=== PATIENT | female | born 1935 | race Caucasian/White ===

== ENCOUNTER → 2023-07-16 11:57 | Outpatient (REF) | payer MEDICARE, SELFPAY ==
[2023-07-16 17:22] LABS: INR 1.98; PT 22.7 Sec (11.4-14.6)
== END ==
LOC: HWLAB 11:57
PROVIDERS: ATTENDING PHYSICIAN Internal Medicine
DX: I48.0 Paroxysmal atrial fibrillation (principal); Z79.01 Long term (current) use of anticoagulants
CPT/HCPCS: 36415; 85610

== ENCOUNTER → 2023-09-07 11:37 | Outpatient (REF) | payer MEDICARE, SELFPAY ==
[2023-09-07 16:13] LABS: INR 2.36; PT 25.7 Sec (11.4-14.6)
== END ==
LOC: HWLAB 11:37
PROVIDERS: ATTENDING PHYSICIAN Internal Medicine
DX: I48.0 Paroxysmal atrial fibrillation (principal)
CPT/HCPCS: 36415; 85610

== ENCOUNTER → 2023-09-10 11:28 | Outpatient (REF) | payer MEDICARE, SELFPAY | LOC: HWWDC 11:28 | PROVIDERS: ATTENDING PHYSICIAN Internal Medicine | DX: Z12.31 Encounter for screening mammogram for malignant neoplasm of breast (principal) | CPT/HCPCS: 77063; 77067 ==

== ENCOUNTER → 2023-10-05 11:20 | Outpatient (REF) | payer MEDICARE, SELFPAY ==
[2023-10-05 15:07] LABS: INR 3.31; PT 33.6 Sec (11.4-14.6)
== END ==
LOC: HWLAB 11:20
PROVIDERS: ATTENDING PHYSICIAN Internal Medicine
DX: Z79.01 Long term (current) use of anticoagulants (principal)
CPT/HCPCS: 36415; 85610

== ENCOUNTER → 2023-10-14 11:16 | Outpatient (REF) | payer MEDICARE, SELFPAY ==
[2023-10-14 15:35] LABS: INR 2.24
== END ==
LOC: HWLAB 11:16
PROVIDERS: ATTENDING PHYSICIAN Internal Medicine
DX: Z79.01 Long term (current) use of anticoagulants (principal)
CPT/HCPCS: 36415; 85610

== ENCOUNTER 2023-10-17 11:35 | Emergency (ER) | payer MEDICARE, SELFPAY ==
[2023-10-17 11:42] VITALS: BP 189/93
--- NOTE | 2023-10-17 13:15 | ED.GENMED ---
History of Present Illness
General
Chief Complaint: Numbness
Time Seen by Provider: 10/17/23 12:13
Travel History
Have you had any contact with someone who has COVID-19?: No
Do you have any symptoms of coronavirus? Fever > 100 degrees, chills, cough, shortness of breath, sore throat, loss of taste or smell, muscle aches, or headache?: No
History of Present Illness
History of Present Illness:
88-year-old female presents to the emergency department for evaluation of left-sided facial droop as well as left arm and leg tingling that began upon awakening at approximately 6 to 7 AM today. She was admitted to [facility] on October 10 with
the same symptoms, at that time underwent stroke workup including CT of the head, MRI/MRA of the brain and echocardiogram were unremarkable. There is no sign of stroke according to the discharge paperwork. She was noted to have a supratherapeutic
INR as well as abnormal TSH requiring increasing Synthroid. Symptoms have since resolved upon arrival to the emergency department.
Past History
Past History
ED Past Medical History: HTN, Hypothyroidism and Other (Factor V Leiden deficiency, DVT Vertigo, Palpitations)
ED Past Surgical History: Appendectomy, Gynecological (Hysterectomy), Orthopedic (Hand surgery, carpal tunnel surgery) and Other (Leg varicosities procedures, cataract surgery)
Social History
Tobacco: Non-smoker
Alcohol: Occasional
Drug: None
Personal:
Living: with family
Employment: Retired
Family History
Family History: Other (Several women with stroke, several men with MS)
Review of Systems
Review of Systems
Allergies reviewed?: Yes
All Other Systems: ROS reviewed and negative except as documented in HPI and ROS
Phy Exam
Physical Exam
Physical Exam:
GEN: Well appearing, NAD, WDWN
HEENT: Oral mucosa moist, no scleral icterus, no nasal congestion
Cardiac: Regular rate
Lung: No respiratory distress, no tachypnea
MSK: No gross deformity or injuries
Skin: Good color, no pallor or jaundice, no rashes
Neuro: AO x3; CN II-XII grossly intact. BUE strength 5/5 in all mejias, sensation intact and symmetric. Left strength 4 out of 5 with mild drift. Extremity, right leg strength 5 out of 5, normal sensation bilaterally
Psych: Calm, cooperative
Course
Orders/Labs/Results
Orders:
Orders
10/17/23 11:[address] [CT Head W/o Iv Contrast] Urgent
Comment:
Reason For Exam: L leg and face numbness, hx of stroke
10/17/23 13:44
Complete Blood Count/With Diff Urgent
Comprehensive Metabolic Panel Urgent
Prothrombin Time Urgent
Abnormal Lab Results
10/17/23
13:44
RBC 3.85 L 10^6/uL
(4.20-5.40)
Hct 36.6 L %
(37.0-47.0)
MCH 32.2 H pg
(27.0-31.0)
MPV 11.4 H fL
(7.4-10.4)
PT 24.1 H Sec
(11.4-14.6)
10/17/23 13:44
10/17/23 13:44
Vital Signs
Initial and Last Documented VS:
Initial Vital Signs
Temp Pulse Resp BP Pulse Ox
98.2 F 71 18 189/93 100
10/17/23 11:42 10/17/23 11:42 10/17/23 11:42 10/17/23 11:42 10/17/23 11:42
Last Documented Vital Signs
Temp Pulse Resp BP Pulse Ox
98.2 F 86 17 175/93 97
10/17/23 11:42 10/17/23 15:00 10/17/23 15:00 10/17/23 15:00 10/17/23 15:00
MDM/Problems Addressed
MDM/Problems Addressed:
88-year-old female presents with TIA symptoms. Similar symptoms earlier in the week that were evaluated [facility] extensively with MRI, MRA and echocardiogram. She is on maximal medical therapy with anticoagulants and statins. Workup in
the emergency department is unrevealing. I discussed the findings and clinical presentation with neurology on-call who advised that there is no need for change to medical therapy and no indication for readmission for further neuro studies given
recency of extensive workup at [place]. Discussed return parameters and supportive care with the patient
*Critical Care Note
Total Time (30-74mins, 75-104mins- exclusive of procedures): Not Applicable
ED Attending Note
-
Portions of this chart may have been created with voice recognition software.� Occasional wrong word or��sound alike� substitutions may have occurred due to the inherent limitations of voice recognition software.
Discharge Plan
Departure
Patient Disposition: Home (Routine Discharge)
Date of Disposition: 10/17/23
Time of Disposition: 15:10
Patient with high blood pressure during this ER visit?: Yes
Discharge Problem:
TIA (transient ischemic attack)
Instructions: Transient Ischemic Attack ED
Prescriptions:
No Action
verapamil 120 MG tablet
240 mg PO DAILY
atorvastatin 20 MG tablet
20 mg PO DAILY
levothyroxine 100 MCG tablet
100 mcg PO .DAILY EXCEPT THURSDAY
levothyroxine 200 MCG tablet
200 mcg PO .THURSDAY
metoprolol succinate 25 MG tablet extended release 24 hr
25 mg PO DAILY
doxazosin 4 MG tablet
8 mg PO DAILY Qty: 0 0RF
Rx Instructions:
hold systolic blood pressure <130
warfarin [Jantoven] 5 MG tablet
5 mg PO HS Qty: 60 0RF
Rx Instructions:
5 MG TUES, TH, SAT
2.5 MG SUN, MON, WED, THU
Referrals:
Clarence Byrd MD [Family Provider] -
Activity Restrictions/Additional Instructions:
At this time I suspect her symptoms are caused by a TIA
Medical therapy is maximized as you are on a blood thinner and cholesterol medicine
If your symptoms reoccur and last longer than they have thus far, especially with any new neurologic symptoms or headache, return to the ER immediately
Interventions
Interventions:
*Risk Screen - Suicide Last Done: 10/17/23 11:42
*General Assessment Last Done: 10/17/23 11:42
*Neglect/Abuse Screening Last Done: 10/17/23 11:42
Discharge Date and Time
Discharge Date/Time: 10/17/23 15:42
Print Language: GREEK
[2023-10-17 13:55] LABS: % Basophils 0.5 % (0-2); % Eosinophils 0.6 % (0-6); % Immature Granulocytes 0.3 % (0-0.5); % Lymphocytes 23.3 % (20.5-51.1); % Monocytes 7.3 % (1.7-9.3); Absolute Lymphocytes 1.4 10^3/uL (1.2-3.4); Absolute Monocytes 0.5 10^3/uL (0.1-0.6); Absolute Neutrophils 4.2 10^3/uL (1.4-6.5); Hematocrit 36.6 % (37.0-47.0); Hemoglobin 12.4 g/dL (12.0-16.0); Mean Corp Hgb Conc. 33.9 g/dL (33.0-37.0); Mean Corpuscular Hgb 32.2 pg (27.0-31.0); Mean Corpuscular Volume 95.1 fL (81.0-99.0); Mean Platelet Volume 11.4 fL (7.4-10.4); Nucleated Red Blood Cells % 0 %; Platelet Count 208 10^3/uL (130-400); Red Blood Cell Count 3.85 10^6/uL (4.20-5.40); Red Cell Dist. Width 13.9 % (11.5-14.5); White Blood Cell Count 6.2 10^3/uL (4.8-10.8)
[2023-10-17 14:01] LABS: INR 2.18; PT 24.1 Sec (11.4-14.6)
[2023-10-17 14:08] LABS: ALT (SGPT) 16 U/L (0-35); AST (SGOT) 24 U/L (14-36); Albumin 4.2 g/dl (3.5-5.0); Alkaline Phosphatase 67 U/L (38-126); Blood Urea Nitrogen 14 mg/dl (7-17); Calcium 9.8 mg/dl (8.4-10.2); Carbon Dioxide 25 mmol/L (22-30); Chloride 106 mmol/L (98-107); Glucose 84 mg/dl (70-99); Potassium 4.1 mmol/L (3.5-5.1); Sodium 140 mmol/L (135-145); Total Bilirubin 0.7 mg/dl (0.2-1.3); Total Protein 6.9 g/dl (6.3-8.2); eGFR > 60.00
[2023-10-17 15:00] VITALS: BP 175/93
== END 2023-10-17 15:42 | disposition home or self-care (01) ==
LOC: EMR 11:35
PROVIDERS: Physician Assistant; EMERGENCY PHYSICIAN Emergency Medicine; FAMILY PHYSICIAN Internal Medicine; REFERRING PHYSICIAN Nuclear Medicine Nuclear Cardiology
DX: G45.9 Transient cerebral ischemic attack, unspecified (principal); I10 Essential (primary) hypertension
CPT/HCPCS: 99284; 70450; 80053; 85025; 85610

== ENCOUNTER → 2023-11-03 13:43 | Outpatient (REF) | payer MEDICARE, SELFPAY | LOC: HWRCS 13:43 | PROVIDERS: ATTENDING PHYSICIAN Nuclear Medicine Nuclear Cardiology; FAMILY PHYSICIAN Internal Medicine | DX: I35.1 Nonrheumatic aortic (valve) insufficiency (principal); I34.0 Nonrheumatic mitral (valve) insufficiency | CPT/HCPCS: 93306 ==

== ENCOUNTER → 2023-11-11 11:31 | Outpatient (REF) | payer MEDICARE, SELFPAY ==
[2023-11-11 16:30] LABS: INR 1.79; PT 20.9 Sec (11.4-14.6)
== END ==
LOC: HWLAB 11:31
PROVIDERS: ATTENDING PHYSICIAN Internal Medicine
DX: Z79.01 Long term (current) use of anticoagulants (principal)
CPT/HCPCS: 36415; 85610

== ENCOUNTER → 2023-12-09 11:47 | Outpatient (REF) | payer MEDICARE, SELFPAY ==
[2023-12-09 16:14] LABS: PT 28.2 Sec (11.4-14.6)
== END ==
LOC: HWLAB 11:47
PROVIDERS: ATTENDING PHYSICIAN Internal Medicine
DX: Z79.01 Long term (current) use of anticoagulants (principal)
CPT/HCPCS: 36415; 85610

== ENCOUNTER → 2024-01-06 11:56 | Outpatient (REF) | payer MEDICARE, SELFPAY ==
[2024-01-06 16:24] LABS: INR 3.35; PT 34.4 Sec (11.4-14.6)
== END ==
LOC: HWLAB 11:56
PROVIDERS: ATTENDING PHYSICIAN Internal Medicine
DX: Z79.01 Long term (current) use of anticoagulants (principal)
CPT/HCPCS: 36415; 85610

== ENCOUNTER → 2024-01-21 12:08 | Outpatient (REF) | payer MEDICARE, SELFPAY ==
[2024-01-21 16:05] LABS: INR 2.57; PT 27.9 Sec (11.4-14.6)
== END ==
LOC: HWLAB 12:08
PROVIDERS: ATTENDING PHYSICIAN Internal Medicine
DX: Z79.01 Long term (current) use of anticoagulants (principal)
CPT/HCPCS: 36415; 85610

== ENCOUNTER → 2024-07-13 12:24 | Outpatient (REF) | payer MEDICARE, SELFPAY | LOC: HWRCS 12:24 | PROVIDERS: ATTENDING PHYSICIAN Nuclear Medicine Nuclear Cardiology; FAMILY PHYSICIAN Internal Medicine | DX: I48.0 Paroxysmal atrial fibrillation (principal); I35.1 Nonrheumatic aortic (valve) insufficiency; I34.0 Nonrheumatic mitral (valve) insufficiency; I35.0 Nonrheumatic aortic (valve) stenosis | CPT/HCPCS: 93306 ==

== ENCOUNTER → 2024-09-13 11:23 | Outpatient (REF) | payer MEDICARE, SELFPAY | LOC: HWWDC 11:23 | PROVIDERS: ATTENDING PHYSICIAN Internal Medicine | DX: Z12.31 Encounter for screening mammogram for malignant neoplasm of breast (principal) | CPT/HCPCS: 77063; 77067 ==